=== PATIENT | female | born 1995 | race Caucasian/White ===

== ENCOUNTER 2017-05-22 19:07 | Emergency (ER) | payer OTHER ==
--- NOTE | ~2017-05-22 | ER ---
PATIENT'S NAME: WILLI RAMIRES [facility] AGE: 21 Y [address] ROOM: [place] [address] LOCATION: [facility] ADMIT DATE: 05/22/2017 ER/Outpatient Report DISCHARGE DATE: 05/22/2017 FAMILY PHYSICIAN: PHYSICIAN, NO ATTENDING PHYSICIAN: Raghu Black TIME OF ARRIVAL: 1915 hours. TIME OF EXAM: 1929 hours. CHIEF COMPLAINT: Right knee pain. 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 She states she became dizzy and lightheaded at that time. She had some numbness and tingling of the knee. No discomfort or numbness of her toes. She reports she did not fall and did not have any other injuries. ALLERGIES: NO KNOWN ALLERGIES. MEDICATIONS: No current medications. PAST MEDICAL HISTORY: Asthma and seasonal allergies. PAST SURGICAL HISTORY: Tonsils and adenoids and left knee surgery. SOCIAL HISTORY: Denies use of tobacco, drugs, and drinks alcohol on occasional basis. REVIEW OF SYSTEMS: All negative other than those mentioned in the HPI. PHYSICAL EXAMINATION: VITAL SIGNS: She weighed 59.6 kg, blood pressure is 111/62, pulse is 76, respirations 18, temp of 98.1, and O2 sat was 98% on room air. GENERAL: She is awake, alert, and oriented x4. PATIENT'S NAME: WILLI RAMIRES [facility] AGE: 21 Y [address] ROOM: [place] [address] LOCATION: [facility] ADMIT DATE: 05/22/2017 ER/Outpatient Report DISCHARGE DATE: 05/22/2017 FAMILY PHYSICIAN: PHYSICIAN, NO ATTENDING PHYSICIAN: Raghu Black SKIN: [place], warm, and dry. RESPIRATIONS: Even and nonlabored. LUNGS: Lung sounds are clear throughout. HEART: Regular rate and rhythm. EXTREMITIES: The patient has a small abrasion across her right knee. She has strong pedal pulses. No fluid of the right knee is noted. She has good range of motion of the knee. LABORATORY DATA: X-ray was completed and no bony abnormality is seen. IMPRESSION: Contusion to the right knee. PLAN: Home, rest, ice, and elevate. Tylenol or ibuprofen for discomfort. Follow up with her primary provider if symptoms persist or worsen. She verbalized understanding. NANCY PEARSON APRN FOR MD CECILIA RESENDIZ/[place] /[id number] d: 05/23/17 0005 t: 05/24/17 1821, OUTPATIENT REPORT
== END 2017-05-22 20:17 | disposition disaster alternative care site (69) ==
LOC: GACC 19:07
DX: S80.01XA Contusion of right knee, initial encounter (principal); J45.909 Unspecified asthma, uncomplicated; Z90.89 Acquired absence of other organs; Z98.890 Other specified postprocedural states; W22.8XXA Striking against or struck by other objects, initial encounter; Y93.89 Activity, other specified; Y99.0 Civilian activity done for income or pay; Y92.69 Other specified industrial and construction area as the place of occurrence of the external cause

== ENCOUNTER → 2017-06-10 | Outpatient (CLI) | payer OTHER | END | disposition disaster alternative care site (69) | LOC: GRAD 09:00 | DX: M25.461 Effusion, right knee (principal); M25.561 Pain in right knee ==